=== PATIENT | female | born 1990 | race Two or more races ===

== ENCOUNTER → 2016-07-19 | Outpatient (CLI) | payer BC, OTHER | END | disposition disaster alternative care site (69) | LOC: LGSMG 17:23 | DX: N91.2 Amenorrhea, unspecified (principal) ==

== ENCOUNTER → 2016-07-22 | Outpatient (CLI) | payer BC, OTHER | END | disposition disaster alternative care site (69) | LOC: GRAD 07-20 08:30 | DX: R10.2 Pelvic and perineal pain (principal) ==

== ENCOUNTER → 2016-08-01 | Outpatient (CLI) | payer BC, OTHER | END | disposition disaster alternative care site (69) | LOC: GRAD 07:56 | DX: R10.31 Right lower quadrant pain (principal); R10.2 Pelvic and perineal pain; G89.29 Other chronic pain; K76.0 Fatty (change of) liver, not elsewhere classified | CPT/HCPCS: Q9967 ==

== ENCOUNTER → 2016-10-17 | Outpatient (CLI) | payer BC, OTHER | LOC: LGSMG 16:50 | DX: R10.13 Epigastric pain (principal) ==